=== PATIENT | male | born 1990 | race Hispanic/Latino ===

== ENCOUNTER 2018-05-20 09:34 | Day surgery (SDC) | payer OTHER ==
[2018-05-19 10:54] VITALS: BMI 25.4
[2018-05-20] MEDS ORDERED: Methylene Blue 10 mg/mL(10ml) IV ONE (12:03)
[2018-05-20] MEDS ORDERED: Midazolam 2 MG/2 ML VIAL ONE (12:37)
[2018-05-20] MEDS ORDERED: Propofol 10 mg/ml Inj (20 ML) ONE ×3 (12:37→13:11)
[2018-05-20 14:52] VITALS: TEMP 97
[2018-05-20 15:00] VITALS: BP 112/63; PULSE 58; RESP 15; O2SAT 100
== END 2018-05-20 14:45 | disposition home or self-care (01) ==
LOC: C.ENDO 09:34
PROVIDERS: ATTEND Internal Medicine Gastroenterology
DX: K51.00 Ulcerative (chronic) pancolitis without complications (principal)
CPT/HCPCS: 45380; 88305; J2250; J2704